=== PATIENT | female | born 1935 | race African-American/Black ===

== ENCOUNTER 2017-03-17 10:14 | Day surgery (SDC) | payer MEDICARE, MEDICAID ==
[~2017-03-17 10:14] MED LIST: ACET-2744 PO; ALLO100T PO; AMLO-511 PO; CELE100 PO; DICLOFENAC SODIUM 0.1% 2.5 ML OPHTHALMIC SOLUTION OD ONE; DSS100 PO; MOXIFLOXACIN HCL 0.5% 3 ML OPHTHALMIC SOLUTION OD ONE; RINGERS SOLUTION,LACTATED 500 ML IV ONE; SENN-30 PO; TAMO10 PO
[2017-03-17] MEDS ORDERED: TROPICAMIDE 1% 2 ML OPHTHALMIC SOLUTION ONE (10:55)
[2017-03-17] MEDS ORDERED: MOXIFLOXACIN HCL 0.5% 3 ML OPHTHALMIC SOLUTION ONE (10:55)
[2017-03-17] MEDS ORDERED: DICLOFENAC SODIUM 0.1% 2.5 ML OPHTHALMIC SOLUTION ONE (10:55)
[2017-03-17] MEDS ORDERED: PHENYLEPHRINE HCL 2.5% 2 ML OPHTHALMIC SOLUTION ONE (10:56)
[2017-03-17] MEDS ORDERED: RINGERS SOLUTION,LACTATED 500 ML IV ONE (10:56)
[2017-03-17] MEDS: PHENYLEPHRINE HCL 2.5% 2 ML OPHTHALMIC SOLUTION OD SCH ×2 (11:42→11:47)
[2017-03-17] MEDS: TROPICAMIDE 1% 2 ML OPHTHALMIC SOLUTION OD SCH ×2 (11:42→11:47)
[2017-03-17] MEDS ORDERED: MIDAZOLAM HCL 2 MG/2 ML VIAL IVP ONE (12:00)
[2017-03-17] MEDS ORDERED: FentaNYL CITRATE-PF 100 MCG/2 ML VIAL IVP ONE (12:00)
== END 2017-03-17 13:55 | disposition home or self-care (01) ==
LOC: SURGERY 10:14
PROVIDERS: ATTEND Specialist
DX: H25.011 Cortical age-related cataract, right eye (principal); I10 Essential (primary) hypertension
CPT/HCPCS: 66984; 93005; C1780; J2250; J3010; J7120